=== PATIENT | female | born 1965 | race Caucasian/White ===

== ENCOUNTER 2017-05-27 12:43 | Emergency (ER) | payer MEDICAID ==
[~2017-05-27] VITALS: Ht 170.2 cm; Wt 104.0 kg
[2017-05-27 13:24] VITALS: Ht 170.2 cm; Wt 104.0 kg
--- NOTE | 2017-05-27 13:38 | ERA ---
ER Documentation Chief Complaint Date/Time DATE: 05/27/17 TIME: 13:38 Chief Complaint EPIGASTRIC PAIN RADIATING TO BACK SINCE YESTERDAY, NAUSEA HPI The patient is a 52-year-old female, presenting to the ER because of epigastric abdominal pain radiating to the back that began yesterday. She has similar symptoms previously from gallbladder attack She complains of nausea but no vomiting, denies fever, chills, neck pain, chest pain, complains of dysuria, denies diarrhea, constipation. She does not smoke or drink Past medical history: Cholelithiasis Past surgical history: None ROS All systems reviewed and are negative except as per history of present illness. Medications Home Meds Active Scripts Ibuprofen* (Motrin*) 600 Mg Tab, 600 MG PO Q6, #20 TAB Prov:HELADIO ESCALONA MD 05/27/17 Sulfamethoxazole/Trimethoprim* (Bactrim Ds* Tablet) 1 Each Tablet, 1 TAB PO BID , #14 TAB Prov:HELADIO ESCALONA MD 05/27/17 Allergies Allergies: Coded Allergies: No Known Allergy (Unverified , 05/27/17) Physical Exam Vitals Vital Signs Date Time Temp Pulse Resp B/P Pulse Ox O2 Delivery O2 Flow Rate FiO2 05/27/17 15:57 97.9 98 Room Air 05/27/17 13:24 98.6 85 16 149/86 100 Physical Exam Const: No acute distress. Head: Atraumatic. Eyes: Normal Conjunctiva. ENT: Normal External Ears, Nose and Mouth. Neck: Full range of motion. No meningismus. Resp: Clear to auscultation bilaterally. Cardio: Regular rate and rhythm. Abd: Soft, non distended, normal bowel sounds, Mild epigastric tenderness, no right lower quadrant, right upper quadrant, rigidity, rebound, CVA tenderness. Skin: No petechiae or rashes. Back: No midline or flank tenderness. Ext: No cyanosis, or edema. Neur: Awake and alert. No focal deficit Psych: Normal Mood and Affect. Result Diagram: 05/27/17 1415 05/27/17 1415 Results 24 hrs Laboratory Tests Test 05/27/17 14:15 05/27/17 15:33 White Blood Count 10.210^3/ul Red Blood Count 4.7310^6/ul Hemoglobin 12.9g/dl Hematocrit 40.2% Mean Corpuscular Volume 85.0fl Mean Corpuscular Hemoglobin 27.3pg Mean Corpuscular Hemoglobin Concent 32.1g/dl Red Cell Distribution Width 13.0% Platelet Count 94878^3/UL Mean Platelet Volume 10.1fl Neutrophils % 65.8% Lymphocytes % 25.4% Monocytes % 6.1% Eosinophils % 2.0% Basophils % 0.4% Nucleated Red Blood Cells % 0.0/100WBC Neutrophils # 6.710^3/ul Lymphocytes # 2.610^3/ul Monocytes # 0.610^3/ul Eosinophils # 0.210^3/ul Basophils # 0.010^3/ul Nucleated Red Blood Cells # 0.010^3/ul Sodium Level 140mmol/L Potassium Level 3.6mmol/L Chloride Level 101mmol/L Carbon Dioxide Level 31mmol/L Anion Gap 12 Blood Urea Nitrogen 16mg/dl Creatinine 0.95mg/dl Glucose Level 100mg/dl Calcium Level 10.0mg/dl Total Bilirubin 0.5mg/dl Direct Bilirubin 0.00mg/dl Indirect Bilirubin 0.5mg/dl Aspartate Amino Transf (AST/SGOT) 49IU/L Alanine Aminotransferase (ALT/SGPT) 74IU/L Alkaline Phosphatase 151IU/L Total Protein 8.6g/dl Albumin 4.2g/dl Globulin 4.40g/dl Albumin/Globulin Ratio 0.95 Lipase 165U/L Bedside Urine pH (LAB) 5.5 Bedside Urine Protein (LAB) 2+ Bedside Urine Glucose (UA) Negative Bedside Urine Ketones (LAB) Negative Bedside Urine Blood 3+ Bedside Urine Nitrite (LAB) Negative Bedside Urine Leukocyte Esterase (L 1+ Current Medications Medications (Trade) Dose Ordered Sig/Albin Route PRN Reason Start Time Stop Time Status Last Admin Dose Admin Sodium Chloride (NS) 1,000 ml @ 1,000 mls/hr Q1H STAT IV 05/27/17 13:45 05/27/17 14:44 DC 05/27/17 14:27 Morphine Sulfate (morphine) 4 mg ONCE STAT IV 05/27/17 13:45 05/27/17 13:46 DC 05/27/17 14:29 Ondansetron HCl (Zofran Inj) 4 mg ONCE STAT IV 05/27/17 13:45 05/27/17 13:46 DC 05/27/17 14:29 Procedures/[facility] MEDICAL MAKING DECISION: The patient is a 52-year-old female, presenting with acute biliary colic, acute cystitis. She was treated with morphine 4 mg IV for pain, Zofran 4 mg IV for nausea and 1 L normal saline for clinical dehydration with good response. The differential diagnoses considered include but are not limited to cholelithiasis, cholecystitis, cystitis, pancreatitis, hepatitis, gastritis, peptic ulcer disease, gastric ulcer, appendicitis, diverticulitis, cholangitis, choledocholithiasis, partial small bowel obstruction. Departure Diagnosis: Primary Impression: Biliary colic Additional Impression: UTI (urinary tract infection) Condition: Fair Additional Instructions: She was discharged with Bactrim DS and Motrin I discussed the findings with the patient. I advised the patient to follow-up with the primary physician in about 1-2 days, sooner if needed and return if any concern. The patient's blood pressure was elevated (>120/80) but appears stable without evidence of hypertension emergency or urgency. The patient was counseled about the risks of hypertension and urged to pursue outpatient monitoring and therapy within a week with their primary care physician. HELADIO ESCALONA MD May 27, 2017 13:38
[2017-05-27] MEDS ORDERED: SOD CHLORIDE 0.9% 1,000 ML IV STA (13:45)
[2017-05-27] MEDS ORDERED: morphine 4 MG/ML VIAL IV STA (13:45)
[2017-05-27] MEDS ORDERED: ONDANSETRON 4 MG INJ IV STA (13:45)
[2017-05-27 14:30] LABS: BASOPHILS % 0.4 % (0.0-2.0); EOSINOPHILS # 0.2 10^3/ul (0.0-0.5); HEMATOCRIT 40.2 % (37.0-47.0); HEMOGLOBIN 12.9 g/dl (12.0-16.0); LYMPHOCYTES # 2.6 10^3/ul (0.8-2.9); LYMPHOCYTES % 25.4 % (15.0-51.0); MEAN CORPUSCULAR HEMOGLOBIN 27.3 pg (29.0-33.0); MEAN CORPUSCULAR HGB CONC 32.1 g/dl (32.0-37.0); MEAN PLATELET VOLUME 10.1 fl (7.4-10.4); MONOCYTE # 0.6 10^3/ul (0.3-0.9); MONOCYTES % 6.1 % (0.0-11.0); NEUTROPHIL # 6.7 10^3/ul (1.6-7.5); NEUTROPHILS % 65.8 % (39.0-77.0); PLATELET COUNT 310 10^3/UL (140-415); RED BLOOD COUNT 4.73 10^6/ul (4.20-5.40); WHITE BLOOD COUNT 10.2 10^3/ul (4.8-10.8)
[2017-05-27 14:51] LABS: ALBUMIN 4.2 g/dl (3.3-4.9); ALBUMIN/GLOBULIN RATIO 0.95; BILIRUBIN,INDIRECT 0.5 mg/dl (0-1.1); BILIRUBIN,TOTAL 0.5 mg/dl (0.2-1.3); CREATININE 0.95 mg/dl (0.44-1.00); POTASSIUM 3.6 mmol/L (3.5-5.1); TOTAL PROTEIN 8.6 g/dl (6.1-8.1)
[2017-05-27 15:25] LABS: URINE BLOOD (Dip) POC 3+ (NEGATIVE)
[2017-05-27] MEDS ORDERED: SULF1TAB31 PO (15:36)
[2017-05-27] MEDS ORDERED: IBUP-1542 PO (15:36)
[2017-05-27 15:57] VITALS: TEMP 97.9
== END 2017-05-27 15:57 | disposition home or self-care (01) ==
LOC: FTE 12:43
DX: K80.50 Calculus of bile duct without cholangitis or cholecystitis without obstruction (principal); N39.0 Urinary tract infection, site not specified
CPT/HCPCS: 36415; 80053; 81003; 83690; 85025; 96374; 96375; J2270; J2405; J7030; Z7502

== ENCOUNTER 2017-08-22 17:50 | Emergency (ER) | END 2017-08-22 21:28 | disposition home or self-care (01) ==

== ENCOUNTER 2018-01-23 13:57 | Emergency (ER) | END 2018-01-23 17:41 | disposition home or self-care (01) ==

== ENCOUNTER 2018-06-03 12:12 | Emergency (ER) | END 2018-06-03 18:18 | disposition home or self-care (01) ==